=== PATIENT | female | born 1955 | race Caucasian/White ===

== ENCOUNTER → 2016-12-14 | Outpatient (REF) | payer OTHER ==
[2016-12-14 14:22] LABS: FERRITIN 26 NG/ML (8-252); PERCENT SATURATION 11.7 % (13.2-37.4); TOTAL IRON BINDING CAPACITY 386 UG/DL (250-450); TOTAL PROTEIN 7.3 GM/DL (6.4-8.2)
[2016-12-14 21:23] LABS: RETIC HEMOGLOBIN CONTENT CHr 28.3 PG (24-36); RETICULOCYTE % ADVIA2120 1.8 % (0.5-1.5)
[2016-12-15 13:10] LABS: ALBUMIN 4.47 GM/DL (3.29-5.55); ALBUMIN % 61.2 % (55.8-66.1); GAMMA GLOBULIN % 11.3 % (11.1-18.8)
== END ==
LOC: M LAB REF 12:59
PROVIDERS: ATTEND Internal Medicine Medical Oncology
DX: D64.9 Anemia, unspecified (principal)

== ENCOUNTER → 2017-02-02 | Outpatient (REF) | payer OTHER ==
[2017-02-02 14:14] LABS: PERCENT SATURATION 13.6 % (13.2-37.4)
== END ==
LOC: M LAB REF 13:21
PROVIDERS: ATTEND Internal Medicine Medical Oncology
DX: D50.9 Iron deficiency anemia, unspecified (principal)

== ENCOUNTER → 2017-02-06 | Outpatient (CLI) | payer OTHER | LOC: M LAB 11:41 | PROVIDERS: ATTEND Internal Medicine Gastroenterology | DX: D50.9 Iron deficiency anemia, unspecified (principal) ==

== ENCOUNTER → 2017-02-21 | Outpatient (CLI) | payer OTHER ==
[~2017-02-21] VITALS: Ht 157.5 cm; Wt 103.0 kg
[~2017-02-21] MED LIST: ASPI81TA85 PO; BENI40TA7 PO; CARD240C5 PO; CRES10TA32 PO; FOLI1TAB2 PO; K-TA10TA2 PO; LABE20TAB PO; LEVO25TA5 PO; LIDOCAINE 2% INJ 100 MG/5 ML SDV (FOR ANES.) As Ordered ONE; NS 1,000 ML IV ONE; PANT40TA2 PO; PHENYLephrine HCL 500 MCG/5 ML (100MCG/ML) SYRINGE (J2370) As Ordered ONE; PROPOFOL 200 MG/20 ML VIAL As Ordered ONE; VITA100037 PO; ePHEDrine SULFATE 25 MG/5 ML(5MG/ML) SYRINGE As Ordered ONE
--- NOTE | 2017-02-21 11:12 | ROOR ---
Patient Name: Pilar Gavin Procedure Date: 02/21/2017 10:57 AM Date of : 1955 Age: 61 Room: [facility] Gender: Female Note Status: Finalized Procedure: Upper GI endoscopy Indications: Iron deficiency anemia Providers: Yves DOWNEY MD Referring MD: KIANA MILLER MD Requesting Provider: Medicines: Monitored Anesthesia Care Complications: No immediate complications. Procedure: Pre-Anesthesia Assessment: - The heart rate, respiratory rate, oxygen saturations, blood pressure, adequacy of pulmonary ventilation, and response to care were monitored throughout the procedure. The Endoscope was introduced through the mouth, and advanced to the second part of duodenum. The upper GI endoscopy was accomplished without difficulty. The patient tolerated the procedure well. 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 Coagulation for bleeding prevention using argon plasma at 0.8 liters/minute and 35 peña was successful. The exam was otherwise without abnormality. 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 Treated with argon plasma coagulation (APC). - The examination was otherwise normal. - No specimens collected. Recommendation: - Observe patient's clinical course. - Continue present medications. Yves Downey MD Yves DOWNEY MD 02/21/2017 11:12:00 AM This report has been signed electronically. Number of Addenda: 0 Note Initiated On: 02/21/2017 10:57 AM Estimated Blood Loss: Estimated blood loss: none.
--- NOTE | 2017-02-21 11:25 | ROOR ---
Patient Name: Pilar Gavin Procedure Date: 02/21/2017 10:58 AM Date of : 1955 Age: 61 Room: [facility] Gender: Female Note Status: Finalized Procedure: Colonoscopy Indications: Iron deficiency anemia Providers: Yves DOWNEY MD Referring MD: KIANA MILLER MD Requesting Provider: Medicines: Monitored Anesthesia Care Complications: No immediate complications. Procedure: Pre-Anesthesia Assessment: - The heart rate, respiratory rate, oxygen saturations, blood pressure, adequacy of pulmonary ventilation, and response to care were monitored throughout the procedure. The Colonoscope was introduced through the anus and advanced to the cecum, identified by appendiceal orifice and ileocecal valve. The colonoscopy was performed without difficulty. The patient tolerated the procedure well. The quality of the bowel preparation was inadequate. Findings: The perianal and digital rectal examinations were normal. (EXAM: Complete, PREP: Suboptimal) Multiple medium-mouthed diverticula were found in the sigmoid colon. Internal hemorrhoids were found during retroflexion. The hemorrhoids were moderate. Impression: - Preparation of the colon was inadequate. - Moderate diverticulosis in the sigmoid colon. - Internal hemorrhoids. - No specimens collected. Recommendation: - Repeat colonoscopy at the next available appointment because the bowel preparation was poor. - Perform a small bowel follow through at appointment to be scheduled. - My office will call you to reschedule the procedure. Yves Downey MD Yves DOWNEY MD 02/21/2017 11:25:02 AM This report has been signed electronically. Number of Addenda: 0 Note Initiated On: 02/21/2017 10:58 AM Estimated Blood Loss: Estimated blood loss: none.
[2017-02-21 11:50] VITALS: BP 118/66
== END | disposition home or self-care (01) ==
LOC: M OPP 09:43
PROVIDERS: ATTEND Internal Medicine Gastroenterology
DX: D50.9 Iron deficiency anemia, unspecified (principal); K57.30 Diverticulosis of large intestine without perforation or abscess without bleeding; K64.8 Other hemorrhoids; K31.819 Angiodysplasia of stomach and duodenum without bleeding; I10 Essential (primary) hypertension; E78.5 Hyperlipidemia, unspecified; E03.9 Hypothyroidism, unspecified; M19.90 Unspecified osteoarthritis, unspecified site; Z78.0 Asymptomatic menopausal state; Z95.5 Presence of coronary angioplasty implant and graft; Z86.79 Personal history of other diseases of the circulatory system; G47.30 Sleep apnea, unspecified; Z79.82 Long term (current) use of aspirin; Z79.899 Other long term (current) drug therapy; Z88.1 Allergy status to other antibiotic agents; Z95.818 Presence of other cardiac implants and grafts; Z80.1 Family history of malignant neoplasm of trachea, bronchus and lung; Z80.42 Family history of malignant neoplasm of prostate
CPT/HCPCS: 43255; 45378; J2370

== ENCOUNTER → 2017-03-16 | Outpatient (REF) | payer OTHER ==
[~2017-03-16] MED LIST changes: -LIDOCAINE 2% INJ 100 MG/5 ML SDV (FOR ANES.) As Ordered ONE; -NS 1,000 ML IV ONE; -PHENYLephrine HCL 500 MCG/5 ML (100MCG/ML) SYRINGE (J2370) As Ordered ONE; -PROPOFOL 200 MG/20 ML VIAL As Ordered ONE; -ePHEDrine SULFATE 25 MG/5 ML(5MG/ML) SYRINGE As Ordered ONE
== END ==
LOC: M LAB REF 13:19
PROVIDERS: ATTEND Internal Medicine Medical Oncology
DX: D50.9 Iron deficiency anemia, unspecified (principal)

== ENCOUNTER → 2017-05-16 | Outpatient (REF) | payer OTHER ==
[~2017-05-16] MED LIST changes: +BENI40TA30 PO; -BENI40TA7 PO; -FOLI1TAB2 PO; +FOLI1TAB4 PO; -VITA100037 PO; +VITA100067 PO
[2017-05-16 15:53] LABS: PERCENT SATURATION 21.6 % (13.2-45.0)
== END ==
LOC: M LAB REF 13:22
PROVIDERS: ATTEND Internal Medicine Medical Oncology
DX: D50.9 Iron deficiency anemia, unspecified (principal)

== ENCOUNTER → 2017-10-17 | Outpatient (REF) | payer OTHER ==
[2017-10-17 15:38] LABS: FERRITIN 1065 NG/ML (8-252); IRON (FE) 64 UG/DL (50-170); PERCENT SATURATION 23.4 % (13.2-45.0); TOTAL IRON BINDING CAPACITY 274 UG/DL (250-450)
== END ==
LOC: M LAB REF 15:04
DX: D50.9 Iron deficiency anemia, unspecified (principal)

== ENCOUNTER → 2017-12-15 | Outpatient (REF) | payer OTHER ==
[2017-12-15 13:57] LABS: FERRITIN 826 NG/ML (8-252); IRON (FE) 49 UG/DL (50-170); PERCENT SATURATION 17.9 % (13.2-45.0); TOTAL IRON BINDING CAPACITY 273 UG/DL (250-450)
== END ==
LOC: M LAB REF 13:22
DX: D50.9 Iron deficiency anemia, unspecified (principal)

== ENCOUNTER → 2018-03-21 | Outpatient (REF) | payer OTHER ==
[2018-03-21 13:24] LABS: FERRITIN 836 NG/ML (8-252); IRON (FE) 64 UG/DL (50-170); TOTAL IRON BINDING CAPACITY 267 UG/DL (250-450)
== END ==
LOC: M LAB REF 12:56
DX: D50.9 Iron deficiency anemia, unspecified (principal)

== ENCOUNTER 2023-11-08 13:42 | Outpatient (CLI) | payer MEDICARE, BC ==
[2023-11-08] VITALS (10 sets, daily range): BP systolic 92–116; BP diastolic 45–82; TEMP 97–97.9; O2SAT 96–99
[~2023-11-08] VITALS: Ht 157.5 cm; Wt 111.3 kg
[~2023-11-08 13:42] MED LIST changes: +ASPI81CH33 PO; -ASPI81TA85 PO; +ASPI81TA86 PO; -BENI40TA30 PO; +CHOL100029 PO; +CRES10TA PO; -CRES10TA32 PO; +FLUC10TA PO; +FOLI1TAB11 PO; -FOLI1TAB4 PO; +HYDR-3910 PO; -K-TA10TA2 PO; +OLME-3 PO; -PANT40TA2 PO; +PANT40TA29 PO; +POTA-165 PO; +PROBCAP14 PO; +RANO500T2 PO; +SODIUM CHLORIDE 0.9% INJ 10 ML SYR IV SCH; +VITA100093 PO; +VITA500T41 PO
[2023-11-08] MEDS ORDERED: SODIUM CHLORIDE 0.9% INJ 10 ML SYR IV PRN (14:05)
[2023-11-08] MEDS ORDERED: ACETAMINOPHEN TAB 650MG DOSE (2X325MG) PO ONE (16:30)
[2023-11-08] MEDS ORDERED: diphenhydrAMINE 25MG CAP PO ONE (16:30)
[2023-11-08] MEDS ORDERED: NS 250 ML IV ONE (16:30)
[2023-11-09 00:34] VITALS: BP 110/50; TEMP 97.9; O2SAT 95
[2023-11-09 01:15] VITALS: BP 117/45; TEMP 97.9; O2SAT 96
== END 2023-11-09 01:27 ==
LOC: M OPCLI5PR 13:42 → M MS5PR 13:55 → M OPCLI5PR 11-09 01:27
PROVIDERS: ATTEND Nurse Practitioner
DX: D50.9 Iron deficiency anemia, unspecified (principal); Z88.1 Allergy status to other antibiotic agents
CPT/HCPCS: 36430; 86920; P9016

== ENCOUNTER 2023-12-02 18:18 | Inpatient (IN) | payer MEDICARE, BC ==
[~2023-12-02] VITALS: Ht 157.5 cm; Wt 110.7 kg
[~2023-12-02 18:18] MED LIST changes: -HYDR-3910 PO; +HYDR25TA87 PO; -SODIUM CHLORIDE 0.9% INJ 10 ML SYR IV SCH
[2023-12-02] MEDS ORDERED: ZOLO100T PO (18:35)
[2023-12-02] MEDS ORDERED: FERR325T3 PO (18:35)
[2023-12-02] MEDS ORDERED: MECL-86 PO (18:35)
[2023-12-02] MEDS ORDERED: VITA1TAB70 PO (18:35)
[2023-12-02 21:35] LABS: BASO % 0.3 % (0.0-1.0); EOS # 0.1 10^3/uL (0.0-0.5); LYMPH # 2.1 10^3/uL (1.5-5.0); MEAN CORPUSCULAR HEMOGLOBIN 26.9 pg (27.0-33.0); MEAN CORPUSCULAR HGB CONC 29.4 g/dl (32.0-36.5); MEAN CORPUSCULAR VOLUME 91.8 fl (80.0-96.0); MONO # 0.8 10^3/uL (0.0-0.8); MONO % 7.4 % (2.0-8.0); NEUTROPHILS # 7.9 10^3/uL (1.5-8.5); NEUTROPHILS % 71.7 % (36.0-66.0); PLATELET COUNT, AUTOMATED 311 10^3/uL (150-450); RED BLOOD COUNT 2.19 10^6/uL (4.00-5.40); WHITE BLOOD COUNT 11.1 10^3/uL (4.0-10.0)
[2023-12-02 21:49] LABS: HEMOGLOBIN 5.9 g/dl (12.0-15.5)
[2023-12-02 21:50] LABS: HEMATOCRIT 20.1 % (36.0-47.0)
[2023-12-02 22:03] LABS: ALBUMIN 3.6 G/DL (3.2-5.2); ALKALINE PHOSPHATASE 68 U/L (46-116); ALT/SGPT < 9 U/L (7.0-40); AST/SGOT 10 U/L (<34); BILIRUBIN,TOTAL 0.3 MG/DL (0.3-1.2); BLOOD UREA NITROGEN 26 MG/DL (9-23); CALCIUM LEVEL 8.9 MG/DL (8.3-10.6); CARBON DIOXIDE LEVEL 24 MMOL/L (20-31); CHLORIDE LEVEL 108 MMOL/L (98-107); CREATININE FOR GFR 1.03 MG/DL (0.55-1.30); GLOMERULAR FILTRATION RATE 56.6 (>45); GLUCOSE, FASTING 116 MG/DL (74-106); POTASSIUM SERUM 4.1 MMOL/L (3.5-5.1); SODIUM LEVEL 139 MMOL/L (136-145); TOTAL PROTEIN 6.1 G/DL (5.7-8.2)
[2023-12-02 22:09] LABS: IRON (FE) 30 UG/DL (50-170); PERCENT SATURATION 8.3 % (13.2-45.0); TOTAL IRON BINDING CAPACITY 361 UG/DL (250-425)
[2023-12-02] MEDS ORDERED: POTA-149 PO (22:59)
[2023-12-02] MEDS ORDERED: LEVO50TA5 PO (22:59)
[2023-12-02] MEDS ORDERED: HOME MED LIST COMPLETE! XX SCH (23:00)
[2023-12-02 23:18] LABS: RSV AMPLIFICATION NEGATIVE (NEGATIVE)
[2023-12-02] MEDS: SUCRALFATE 1 GM TAB PO ONE (23:35)
[2023-12-02] MEDS: PANTOPRAZOLE 40MG VIAL IV ONE (23:37)
[2023-12-02] MEDS ORDERED: ONDANSETRON 4MG 2ML VIAL IV PRN (23:45)
[2023-12-03] VITALS (18 sets, daily range): BP systolic 111–136; BP diastolic 55–66; TEMP 97.2–98.7; O2SAT 95–100
[2023-12-03] MEDS: RANOLAZINE 500MG ER TAB PO SCH (03:04)
[2023-12-03] MEDS: LABETALOL 100MG TAB PO SCH (03:04)
[2023-12-03] MEDS: LEVOTHYROXINE 50MCG TABLET (0.05MG) PO SCH (06:20)
[2023-12-03] MEDS: dilTIAZem 120MG **CD** CAPSULE PO SCH (07:59)
[2023-12-03] MEDS: PANTOPRAZOLE 40MG VIAL IV SCH (08:00)
[2023-12-03] MEDS ORDERED: ROSUVASTATIN 10 MG TAB (CRESTOR) PO SCH (09:00)
[2023-12-03 13:17] LABS: BASO % 0.4 % (0.0-1.0); EOS # 0.1 10^3/uL (0.0-0.5); EOS % 1.5 % (0.0-3.0); HEMATOCRIT 23.7 % (36.0-47.0); HEMOGLOBIN 7.4 g/dl (12.0-15.5); LYMPH # 1.9 10^3/uL (1.5-5.0); LYMPH % 23.4 % (24.0-44.0); MEAN CORPUSCULAR HEMOGLOBIN 27.8 pg (27.0-33.0); MEAN CORPUSCULAR HGB CONC 31.2 g/dl (32.0-36.5); MEAN CORPUSCULAR VOLUME 89.1 fl (80.0-96.0); MONO # 0.8 10^3/uL (0.0-0.8); MONO % 9.9 % (2.0-8.0); NEUTROPHILS # 5.2 10^3/uL (1.5-8.5); NEUTROPHILS % 64.1 % (36.0-66.0); PLATELET COUNT, AUTOMATED 295 10^3/uL (150-450); RED BLOOD COUNT 2.66 10^6/uL (4.00-5.40); WHITE BLOOD COUNT 8.1 10^3/uL (4.0-10.0)
[2023-12-03] MEDS: SUCRALFATE SUSP 1GM/10ML UD PO SCH (13:25)
[2023-12-03] MEDS: ACETAMINOPHEN TAB 650MG DOSE (2X325MG) PO PRN (20:07)
[2023-12-04] VITALS (11 sets, daily range): BP systolic 101–142; BP diastolic 56–70; TEMP 97.9–98.6; O2SAT 96–99
[2023-12-04 05:47] LABS: BASO % 0.5 % (0.0-1.0); EOS # 0.1 10^3/uL (0.0-0.5); EOS % 1.8 % (0.0-3.0); HEMATOCRIT 25.1 % (36.0-47.0); HEMOGLOBIN 7.8 g/dl (12.0-15.5); LYMPH # 1.8 10^3/uL (1.5-5.0); LYMPH % 22.8 % (24.0-44.0); MEAN CORPUSCULAR HEMOGLOBIN 27.7 pg (27.0-33.0); MEAN CORPUSCULAR HGB CONC 31.1 g/dl (32.0-36.5); MONO # 0.8 10^3/uL (0.0-0.8); MONO % 10.8 % (2.0-8.0); NEUTROPHILS # 4.9 10^3/uL (1.5-8.5); NEUTROPHILS % 63.5 % (36.0-66.0); PLATELET COUNT, AUTOMATED 292 10^3/uL (150-450); RED BLOOD COUNT 2.82 10^6/uL (4.00-5.40); WHITE BLOOD COUNT 7.8 10^3/uL (4.0-10.0)
[2023-12-04 06:10] LABS: CALCIUM LEVEL 8.7 MG/DL (8.3-10.6); CREATININE FOR GFR 1.04 MG/DL (0.55-1.30); GLOMERULAR FILTRATION RATE 55.9 (>45); POTASSIUM SERUM 3.8 MMOL/L (3.5-5.1)
[2023-12-04] MEDS: FUROSEMIDE 20MG/2ML VIAL IV ONE (09:30)
[2023-12-04] MEDS: IRON SUCROSE 500 MG in NS 250 ML IV ONE (10:30)
[2023-12-04] MEDS ORDERED: SUCR1TA PO (17:01)
[2023-12-04 18:19] LABS: HEMATOCRIT 29.1 % (36.0-47.0); HEMOGLOBIN 9.1 g/dl (12.0-15.5); MEAN CORPUSCULAR HEMOGLOBIN 27.8 pg (27.0-33.0); MEAN CORPUSCULAR HGB CONC 31.3 g/dl (32.0-36.5); PLATELET COUNT, AUTOMATED 292 10^3/uL (150-450); RED BLOOD COUNT 3.27 10^6/uL (4.00-5.40); WHITE BLOOD COUNT 9.8 10^3/uL (4.0-10.0)
[2023-12-05 02:13] VITALS: O2SAT 89
[2023-12-05 02:51] VITALS: O2SAT 95
[2023-12-05 05:54] LABS: BASO % 0.3 % (0.0-1.0); EOS # 0.2 10^3/uL (0.0-0.5); EOS % 2.2 % (0.0-3.0); HEMATOCRIT 27.5 % (36.0-47.0); HEMOGLOBIN 8.9 g/dl (12.0-15.5); LYMPH # 1.5 10^3/uL (1.5-5.0); LYMPH % 18.6 % (24.0-44.0); MEAN CORPUSCULAR HEMOGLOBIN 28.8 pg (27.0-33.0); MEAN CORPUSCULAR HGB CONC 32.4 g/dl (32.0-36.5); MONO # 0.9 10^3/uL (0.0-0.8); MONO % 11.3 % (2.0-8.0); NEUTROPHILS # 5.2 10^3/uL (1.5-8.5); NEUTROPHILS % 66.6 % (36.0-66.0); PLATELET COUNT, AUTOMATED 273 10^3/uL (150-450); RED BLOOD COUNT 3.09 10^6/uL (4.00-5.40); WHITE BLOOD COUNT 7.9 10^3/uL (4.0-10.0)
[2023-12-05 06:00] VITALS: BP 141/68; TEMP 97.5; O2SAT 97
[2023-12-05 06:16] LABS: CREATININE FOR GFR 1.08 MG/DL (0.55-1.30); GLOMERULAR FILTRATION RATE 53.5 (>45); POTASSIUM SERUM 3.6 MMOL/L (3.5-5.1)
== END 2023-12-05 10:49 | disposition home or self-care (01) | DRG 812 ==
LOC: M ED 18:18 → M ED INP 18:19 → OBSVTOIN 18:20 → ENRESERV 12-03 01:12 → M MSPAV 12-03 01:54
PROVIDERS: ADMIT Internal Medicine; ATTEND Internal Medicine Nephrology
PROC: 30233N1 Transfusion of Nonautologous Red Blood Cells into Peripheral Vein, Percutaneous Approach (ICD-10-PCS; principal; 2023-12-02)
DX: D62 Acute posthemorrhagic anemia (principal); Z68.41 Body mass index [BMI] 40.0-44.9, adult; K31.819 Angiodysplasia of stomach and duodenum without bleeding; I10 Essential (primary) hypertension; E78.00 Pure hypercholesterolemia, unspecified; I25.10 Atherosclerotic heart disease of native coronary artery without angina pectoris; E03.9 Hypothyroidism, unspecified; Z79.82 Long term (current) use of aspirin; Z79.890 Hormone replacement therapy; Z79.899 Other long term (current) drug therapy; Z88.1 Allergy status to other antibiotic agents; Z98.61 Coronary angioplasty status; E66.01 Morbid (severe) obesity due to excess calories; G47.33 Obstructive sleep apnea (adult) (pediatric); K21.9 Gastro-esophageal reflux disease without esophagitis; K64.9 Unspecified hemorrhoids; K57.90 Diverticulosis of intestine, part unspecified, without perforation or abscess without bleeding; E61.1 Iron deficiency

== ENCOUNTER → 2025-06-04 | Outpatient (REF) | payer MEDICARE, BC ==
[~2025-06-04] MED LIST changes: +AMLO2.5T3; +FERR325T3 PO; +FOLI1TAB11; +LABE200T5 PO; +LEVO50TA5 PO; +MECL-86 PO; +POTA-149 PO; +SUCR1TA PO; +VALS320T3; +VITA1TAB70 PO; +ZOLO100T PO
[2025-06-06 17:32] LABS: PROTEIN, TOTAL SO 7.2 g/dL (6.1-8.1)
[2025-06-11 06:46] LABS: ALBUMIN SO 4.5 g/dL (3.8-4.8); ALPHA 1 GLOBULINS SO 0.3 g/dL (0.2-0.3); ALPHA 2 GLOBULINS SO 0.8 g/dL (0.5-0.9); BETA 2 GLOBULIN SO 0.4 g/dL (0.2-0.5); BETA GLOBULIN SO 0.4 g/dL (0.4-0.6); GAMMA GLOBULINS SO 0.7 g/dL (0.8-1.7)
== END ==
LOC: M LAB REF 18:08
PROVIDERS: ATTEND Internal Medicine Nephrology
DX: N18.31 Chronic kidney disease, stage 3a (principal)